=== PATIENT | male | born 1970 | race Caucasian/White ===

== ENCOUNTER 2022-04-01 08:02 | Day surgery (SDC) | payer BC, SELFPAY ==
[2022-04-01] MEDS: CEFAZOLIN 2 GM INJ IVP (08:07)
[2022-04-01 08:20] VITALS: BMI 45.5
[2022-04-01 08:25] VITALS: BP 145/88; PULSE 71; RESP 18; TEMP 36.9; O2SAT 97
[2022-04-01] MEDS: LACTATED RINGERS 1000 ML 1,000 ML 100 ML IV (08:57)
[2022-04-01] MEDS: SODIUM CHLORIDE 0.9 % (FLUSH) 10 ML SYRINGE IVF (08:58)
--- NOTE | 2022-04-01 09:20 | PM.GSPRC ---
Operative Note Date of procedure: 04/01/22 Type of Procedure: 1. Excision of right posterior shoulder lipoma 13 x 10 cm. Procedure Description: After discussing the risks and benefits of the procedure, the patient signed informed consent.? The operative site was marked and the patient was brought to the operating room and placed on the operating table in The left lateral decubitus position.? Care was taken to pad the patient's pressure points.?? The patient was then sedated by anesthesia.?? The operative site was then prepped and draped in the usual sterile fashion.? A time-out was then performed. Local anesthetic was injected in the surgical site. A vertical elliptical skin incision was made with a scalpel excising a 7 mm wide sliver of skin containing a pustule. This was discarded, and the scalpel used for this incision was placing the dirty instruments. Subcutaneous fat was divided with cautery. It was difficult to differentiate initially between subcutaneous fat and lipoma. Subcutaneous fat was dissected away from the mass with cautery. This dissection was done circumferentially with frequent palpation of the mass. Hemostasis was achieved with cautery and 3-0 Vicryl stick ties. The mass appeared to be tightly adherent to the muscle fascia. The mass was shaved off the muscle fascia and removed. Additional segment of the mass superiorly was removed and was sent to pathology in 1 jar. The mass was measuring 13 x 10 cm. It had an appearance of angiolipoma. Patient's infraspinatus muscle fibers were protruding and was difficult to tell if this was due to position or there was the submuscular lipoma. I elected to superficial explore this area to exclude intramuscular lipoma. The muscle fascia was incised with cautery. The muscle fibers were gently retracted and this area was superficially explored. No intramuscular lipoma was immediately noted. This exploration was not extended deeper. I then closed the fascia overlying the muscle with a running 3-0 Vicryl suture. The incision was irrigated with normal saline. Additional local anesthetic was injected into the surgical field. A 15 round Aryan drain was placed into the excision cavity through a separate skin incision that was created right inferior laterally. The drain was secured in place with a nylon suture. The incision was then closed in layers with interrupted 2-0 and 3-0 Vicryl sutures. The length of the incision was 15 cm. The skin was closed with a running subcuticular 4-0 Monocryl stitch. Steri-Strips and sterile pressure in dressings were placed over the incision. The drain sponge was placed as well. ? ? The patient was then woken and transported to the recovery area in stable condition. ? The patient tolerated the procedure well. Findings: 13 x 10 cm lipoma overlying the muscle fascia. Implants: Fifteen round Aryan drain Anesthesia: MAC and local Surgeon: Palmer Mejia MD Estimated blood loss (mL): 15 Condition: stable Disposition: same day
[2022-04-01 11:21] VITALS: BP 137/77; PULSE 71; RESP 16; TEMP 36.4; O2SAT 93
--- NOTE | 2022-04-01 11:24 | W.ANESCHARGE ---
Anesthesia Charges Start Date/Time Anesthesia Start Date: 04/01/22 Anesthesia Start Time: 09:24 Stop Date/Time Anesthesia Stop Date: 04/01/22 Anesthesia Stop Time: 11:25 Summary Emergency: No
[2022-04-01 11:30] VITALS: BP 125/86; PULSE 79; RESP 16; O2SAT 93
[2022-04-01 11:45] VITALS: BP 124/85; PULSE 78; RESP 16; O2SAT 94
[2022-04-01 12:00] VITALS: BP 128/75; PULSE 71; RESP 16; O2SAT 93
[2022-04-01 12:30] VITALS: BP 131/87; PULSE 74; RESP 16; O2SAT 93
== END 2022-04-01 12:50 | disposition home or self-care (01) ==
PROVIDERS: Visit Provider Surgery
PROC: (CPT 23071; principal; 2022-04-01 09:15)
DX: D17.21 Benign lipomatous neoplasm of skin and subcutaneous tissue of right arm (principal)
CPT/HCPCS: 23071; 00400; 88304; J0690; J1100; J1885; J2250; J2405; J2704; J3010; J3490; J7120

== ENCOUNTER 2023-04-14 09:47 | Outpatient (CLI) | payer BC, SELFPAY ==
--- NOTE | 2023-04-14 11:10 | W.ANESCHARGE ---
Anesthesia Charges Start Date/Time Anesthesia Start Date: 04/14/23 Anesthesia Start Time: 10:55 Stop Date/Time Anesthesia Stop Date: 04/14/23 Anesthesia Stop Time: 11:17
--- NOTE | 2023-04-14 11:20 | W.ANESCHARGE ---
Anesthesia Charges Start Date/Time Anesthesia Start Date: 04/14/23 Anesthesia Start Time: 10:55 Stop Date/Time Anesthesia Stop Date: 04/14/23 Anesthesia Stop Time: 11:17
== END 2023-04-14 09:48 | disposition home or self-care (01) ==
LOC: OP CLINIC 09:49
PROVIDERS: PCP Internal Medicine; Visit Provider Internal Medicine Gastroenterology
DX: Z12.11 Encounter for screening for malignant neoplasm of colon (principal); K63.5 Polyp of colon
CPT/HCPCS: 00811; 45380; 88305; J2704

== ENCOUNTER 2024-09-24 15:18 | Outpatient (CLI) | payer BC, SELFPAY ==
--- NOTE | 2024-09-24 15:30 | MR_ITS ---
EXAM: MRI OF THE LEFT KNEE CLINICAL INFORMATION: The patient is a 54-year-old with left knee pain. Evaluate for medial meniscal injury. PRIOR SURGERY: None reported. COMPARISON STUDIES: Comparison is made to prior radiographs dated 07/22/2024. TECHNICAL INFORMATION: Imaging was performed on a high-field, 1.5 Mikki MR scanner. Axial proton-density and fat-suppressed T2 imaging of the left knee was performed in addition to coronal proton-density, T2, and STIR imaging. Sagittal proton-density and fat-suppressed T2 imaging was produced. FINDINGS: Articular/Extraarticular collections: Effusion: Mild. Popliteal cyst: Small to moderate, seen on sagittal series 6 images 9 and 12. Loose bodies: No well-defined intra-articular loose bodies are present. Subcutaneous and extraarticular soft tissues: Nonspecific soft tissue edema, hemorrhage, or inflammatory change can be seen along the anterior aspect of the knee on sagittal series 6 image 22. Osseous structures: Reactive marrow edema can be seen along the posteromedial aspect of the medial tibial plateau on coronal series 8 image 24, in keeping with the meniscal tearing discussed below. No other bony abnormalities about the knee are seen. Ligamentous structures: ACL: Intact and normal in appearance. PCL: Intact and normal in appearance. MCL: Intact and normal in appearance. LCL: Intact and normal in appearance. Posterolateral corner: Intact and normal in appearance. Posteromedial corner: No posteromedial corner soft tissue injury. Semimembranosus and pes anserine tendons demonstrate no tendinopathy or associated bursitis. Extensor mechanism/Patellar retinacular structures: Patellar tendon: Intact, without tendinopathy. Quadriceps tendon: Intact, without tendinopathy. Retinacula: The medial and lateral retinacula are intact. The medial patellofemoral ligament is intact. Medial compartment: Medial meniscus: The medial meniscus is abnormal in appearance. There is broad- based, complex tearing of the middle and posterior portions, with horizontal and vertical components, seen on sagittal series 6 image 12 and on coronal series 7 image 21. The broad-based area of complex tearing measures approximately 30 mm in anteroposterior dimension and 28 mm in mediolateral dimension. The anterior horn of the medial meniscus appears intact. No parameniscal cyst formation is seen. Medial femoral condyle: No chondromalacia, chondral defect, or osteochondral abnormality. Medial tibial plateau: No chondromalacia, chondral defect, or osteochondral abnormality. Lateral compartment: Lateral meniscus: Intrasubstance degeneration of the posterior horn of the lateral meniscus can be seen, however no definite areas of well-defined lateral meniscal tearing are noted. No parameniscal cyst formation is present. Lateral femoral condyle: No chondromalacia, chondral defect, or osteochondral abnormality. Lateral tibial plateau: No chondromalacia, chondral defect, or osteochondral abnormality. Patellofemoral compartment: Patella: No chondromalacia, chondral defect, or osteochondral abnormality. Trochlea: No chondromalacia, chondral defect, or osteochondral abnormality. Neurovascular: No definite neurovascular abnormalities are seen. CONCLUSION: 1. Broad-based, complex tearing of the middle and posterior portions of the medial meniscus as described above. 2. Intrasubstance degeneration of the posterior horn of the lateral meniscus without well-defined tearing. 3. The chondral structures appear intact. 4. The cruciate and collateral ligaments are within normal limits. 5. Mild knee joint effusion and [id number] popliteal cyst. AEC Electronically signed on 09/28/2024 6:40:00 AM by David Reed M.D.
== END 2024-09-24 15:19 | disposition home or self-care (01) ==
LOC: MRI 15:19
PROVIDERS: PCP Internal Medicine; Visit Provider Orthopaedic Surgery Sports Medicine
DX: M25.562 Pain in left knee (principal); S83.242A Other tear of medial meniscus, current injury, left knee, initial encounter; M17.12 Unilateral primary osteoarthritis, left knee; M25.462 Effusion, left knee; S83.282A Other tear of lateral meniscus, current injury, left knee, initial encounter
CPT/HCPCS: 73721

== ENCOUNTER 2024-12-20 06:08 | Day surgery (SDC) | payer OTHER, SELFPAY ==
[2024-12-20] VITALS (12 sets, daily range): BP systolic 112–145; BP diastolic 50–96; PULSE 60–81; RESP 15–21; TEMP 36.2–36.9; O2SAT 92–97; BMI 43.9
[2024-12-20] MEDS: SODIUM CHLORIDE 0.9 % (FLUSH) 10 ML SYRINGE IVF ×2 (06:45→08:39)
--- NOTE | 2024-12-20 06:49 | W.PM.H&PU ---
History & Physical Update History & Physical Update H&P Reviewed and patient assessed: No changes noted
[2024-12-20] MEDS: LACTATED RINGERS 1000 ML 1,000 ML 100 ML IV (06:50)
[2024-12-20] MEDS: ROPIVACAINE 0.5% 30 ML 150 MG INJECTION (08:08)
--- NOTE | 2024-12-20 08:08 | PM.ORPRC ---
Procedure Note Date of procedure: 12/20/24 Procedure: PREOPERATIVE DIAGNOSIS: 1. Left knee medial meniscus tear POSTOPERATIVE DIAGNOSIS: 1. Left knee medial meniscus tear 2. 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 Left knee arthroscopic partial medial meniscectomy SURGEON: Barry Noel M.D. HOME APPLIANCE TECH: Lalo Perry PA-C. Of note, an program support assistant was critical for this case to aid in patient positioning, knee manipulation, instrument exchange, and closure. ANESTHESIA: Spinal EBL: 2ml TOURNIQUET: 30 min at 300 torr COMPLICATIONS: None evident INDICATIONS: The patient is a pleasant 54-year-old male who has experienced left knee pain particularly with any twisting or turning. Physical exam was concerning for medial meniscus tear, this was confirmed on MRI. Additionally, attempted nonoperative management has been tried, and failed. Thus, surgery was recommended. FINDINGS: Complex tear of the posterior horn to midbody medial meniscus. Posterior root was intact. Grade 2 chondromalacia medial compartment. Grade 3 chondromalacia patellofemoral compartment including the trochlear groove. Healthy lateral compartment including lateral meniscus. ACL and PCL intact and robust. No loose bodies evident. DESCRIPTION OF PROCEDURE: After a thorough discussion of risks, benefits, and alternatives, the patient was brought to the operating room and placed upon the operating table. Induction of anesthesia was undertaken as previously noted. 3 g IV Ancef was administered within 1 hr of incision preoperatively. Appropriate time-out was performed identifying proper patient, site, and procedure. The left lower extremity was prepped and draped in the appropriate sterile fashion using ChloraPrep. The limb was exsanguinated and tourniquet inflated. Anterolateral and anteromedial portals were established with an 11 blade, and a diagnostic arthroscopy was performed. This identified the findings as noted above. Following the diagnostic arthroscopy, a partial medial menisectomy was performed with the combination of basket forceps and a motorized shaver. Following this, the meniscus was re-probed and found to be stable. Approximately 20-25% of the overall meniscus required resection. At this stage, the shaver was reinserted into the suprapatellar pouch and all remaining meniscal debris was evacuated. Instruments were removed, excess fluid was drained, and closure performed with 4-0 Monocryl with Steri-Strips. Dressings were applied, the tourniquet deflated, and the patient was awoken from anesthesia and transferred to the PACU in stable condition. PLAN: 1. Weightbear as tolerated operative extremity. Crutch / walker ambulation assistance PRN. Straight leg raise to be initiated starting tomorrow by the patient. 2. Ice, acetominophen and/or ibuprofen, and Oxycodone for pain as needed. 3. Knee range of motion and quad sets/straight leg raise regularly 4. Follow up with PA visit in 7-10 days. for a wound check. Initiate physical therapy at that time
--- NOTE | 2024-12-20 08:25 | P.ANES_ITS ---
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
--- NOTE | 2024-12-20 08:25 | W.ANESCHARGE ---
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
--- NOTE | 2024-12-20 08:36 | SUR.PHASEI ---
Patient arrived in PACU awake. No pain, nausea and states he is warm enough. Taking ice chips within 10 minutes after arriving to PACU.
--- NOTE | 2024-12-20 08:53 | SUR.PHASEI ---
Patient meets discharge criteria from PACU. Patient is comfortable, able to wiggle feet, taking ice chips and awake.
== END 2024-12-20 09:59 | disposition home or self-care (01) ==
LOC: OR 06:09
PROVIDERS: PCP Internal Medicine; Visit Provider Orthopaedic Surgery Sports Medicine
PROC: (CPT 29870; principal; 2024-12-20 07:15)
DX: S83.232A Complex tear of medial meniscus, current injury, left knee, initial encounter (principal); M94.262 Chondromalacia, left knee; E66.01 Morbid (severe) obesity due to excess calories; Z68.41 Body mass index [BMI] 40.0-44.9, adult
CPT/HCPCS: 29881; 01400; J0690; J1100; J2250; J2405; J2704; J2795; J3010; J7120

== ENCOUNTER 2025-01-10 08:30 | Outpatient (RCR) | payer OTHER, SELFPAY ==
--- NOTE | 2024-12-28 18:11 | PT.OPEX ---
PT [place] Outpatient Eval PT [facility] Outpatient Eval Start: 12/27/24 16:31 Freq: Status: Active Protocol: Document 12/27/24 16:31 MINA (Rec: 12/27/24 16:33 MINA [id number]) E-signed By Judith Iniguez DPT Physical Therapy Outpatient Evaluation Insurance Information Insurance Name [employer] Medical Diagnosis L knee arthroscopy, PMM 12/20/24 Treating Diagnosis L knee arthroscopy 12/20/14 with L knee pain, impaired L knee ROM, impaired L knee/LE mobility/strength, limping/antalgic gait, limited tolerance for extended sitting/standing/walking, currently off work Subjective Subjective Patient reports L knee injury at work on 12/17/24. 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 He reports feeling a pop in his knee and had L knee pain. This injury lead to L knee scope surgery on 12/20/24. Per PT order, patient had L knee PMM. Patient reports using crutches for a couple of days after surgery. He has been able to ambulate without AD since then. Stairs have been difficult, performing one step at a time as needed. He reports tightness, stiffness in L posterior medial side of his knee. He is using tylenol as needed, icing regularly. Sleep has been ok. Steri strips are in place over port incisions. Patient has been off work since 12/17. 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 Pain rated 2/10. Patient has a follow up with PA scheduled for 12/31. Date of Next 12/31/24 Physician Visit Date of Surgery (If 12/20/24 applicable) Occupation patient has been off work since 12/17 Assessment Assessment/ Patient is a 54 year old male s/p L knee injury at work Impression leading up to L knee arthroscopy, PMM on 12/20/14 with L knee pain, impaired L knee ROM, impaired L knee/LE mobility/strength, limping/antalgic gait, limited tolerance for extended sitting/standing/walking, currently off work. Pain rated 2/10. Patient is using tylenol as needed, icing regularly. He reports tightness, stiffness in L posterior medial side of knee . Denies pain with palpation, more noticeable with knee flexion. L knee ROM 0-0-110 degrees. Patient initially lacking full ext by 8 degrees at rest, able to stretch and loosen up to achieve full ext with gentle over pressure stretching. R knee ROM 0-0-130 degrees. Steri strips in place over port incisions, clean, dry. Strength testing deferred at this time. Gait is slow, limping, antalgic without AD. Patient with good quad set, slight ext lag with SLR this session. Able to initiate L knee ROM and gentle strengthening exercises this session. Eval note will be sent to work comp for authorization of PT visits. Requesting PT once a week for 8-10 weeks with goal of return to full work duties. Patient would benefit from skilled PT for pain/sx management, improved L knee ROM , improved L knee/LE mobility/strength, improved gait/ stair negotiation, balance/proprioception training, and establishment of HEP. Plan of Care Rehabilitation Good Potential Physical Therapy 1. Decrease/maintain L knee pain at less than/equal to Goals 3/10 with daily/work activities and with the progression of PT activities over the next 6-8 weeks. 2. 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 3. 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 4. 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 5. 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 Coordination/ Referral Source Communication With Treatment Plan/ Gait Training,Manual Therapy,Therapeutic Exercises Direct Interventions Frequency/Duration 1x/week Patient Will Be Completion of LTG(s),Skills Plateau,Independent w/HEP, Discharged From Independently Progressing Therapy Evaluation Billing Untimed Code 22 Treatment Minutes Complexity Moderate Certification Information Provider Signature Yes Required Provider Signature POC & Medical Necessity Shows Agreement With Physician NPI Number Write NPI# Here Physician Comment/ : Change Physician Signature Please Sign/Date Here & Date Requested
== END 2025-05-10 23:59 | disposition home or self-care (01) ==
PROVIDERS: PCP Internal Medicine; Visit Provider Orthopaedic Surgery Sports Medicine
DX: Z48.89 Encounter for other specified surgical aftercare (principal); Z51.89 Encounter for other specified aftercare
CPT/HCPCS: 97110; 97162